=== PATIENT | female | born 1945 | race Caucasian/White ===

== ENCOUNTER 2018-01-25 12:58 | Emergency (ER) | payer OTHER ==
[~2018-01-25] VITALS: Ht 154.9 cm; Wt 70.9 kg
[~2018-01-25 12:58] MED LIST: ASCORBIC ACID500 M3 PO; B COMPLETE1 EACH PO; LOTREL 5/201 CAPSULE PO; METOPROLOL SUCC50 MG PO; NORCO 5/3251 TABLET PO; VITAMIN E400 UNIT PO; ZETIA10 MG PO; ZOFRAN4 MG PO
[2018-01-25] MEDS ORDERED: FENOFIBRATE150 MG PO (13:30)
[2018-01-25 13:38] LABS: HEMATOCRIT 39.8 % (36.0-46.0); HEMOGLOBIN 13.4 G/DL (11.9-15.5); MCH 31.4 PG (29.0-34.0); MCHC 33.7 G/DL (30.0-36.0); MCV 93.2 FL (83-99); PLATELET COUNT 362 K/uL (156-360); RBC DIS.WIDTH-CV 13.8 % (11.8-14.6); RBC DIS.WIDTH-SD 47.4 % (39-53); RED BLOOD COUNT 4.27 M/uL (3.80-5.20); WHITE BLOOD COUNT 6.8 K/uL (4.1-10.2)
[2018-01-25 13:46] LABS: CHLORIDE 108 mEq/L (99-109); POTASSIUM 4.3 mEq/L (3.7-5.4); SODIUM 142 mEq/L (136-147)
[2018-01-25 13:48] LABS: GLUCOSE 103 mg/dL (70-99)
[2018-01-25 13:52] LABS: CREATININE 1.1 mg/dL (0.6-1.3); GFR ESTIMATE (CALCULATED) 52 mL/min/
[2018-01-25 13:53] LABS: UREA NITROGEN (BUN) 22 mg/dL (9-23)
[2018-01-25 15:22] LABS: APPEARANCE SL.HAZY ((CLEAR)); BILIRUBIN NEGATIVE; BLOOD NEGATIVE; COLOR YELLOW ((YELLOW)); GLUCOSE (STRIP) NEGATIVE; KETONES NEGATIVE; LEUKOCYTES TRACE; NITRITE NEGATIVE; PROTEIN (STRIP) NEGATIVE; UROBILINOGEN 0.2 MG/DL (0.2-1.0)
[2018-01-25 15:33] LABS: BACTERIA RARE /HPF; EPITHELIAL CELLS RARE /HPF; MUCUS TRACE /LPF; RED BLOOD CELLS 0-5 /HPF (0-5); UCUL ADDED? YES
[2018-01-25] MEDS ORDERED: LIDODERM 5% P1 PATCH TD (16:07)
[2018-01-25] MEDS ORDERED: BACLOFEN10 MG PO (16:07)
[2018-01-25] MEDS ORDERED: MOTRIN600 MG PO (16:07)
[2018-01-25 16:16] VITALS: BP 160/90
== END 2018-01-25 16:19 | disposition home or self-care (01) ==
LOC: EME 12:58
PROVIDERS: Nurse Practitioner Family
DX: M54.42 Lumbago with sciatica, left side (principal); I87.8 Other specified disorders of veins; M16.0 Bilateral primary osteoarthritis of hip; M47.897 Other spondylosis, lumbosacral region; I10 Essential (primary) hypertension; E78.5 Hyperlipidemia, unspecified; Z86.69 Personal history of other diseases of the nervous system and sense organs; Z98.890 Other specified postprocedural states; Z83.3 Family history of diabetes mellitus; Z88.0 Allergy status to penicillin
CPT/HCPCS: 73501; 80048; 81003; 85027; 87086; 99281; 99284; J1885; J3010